=== PATIENT | male | born 1960 | race African-American/Black ===

== ENCOUNTER 2017-03-09 00:34 | Emergency (ER) | payer OTHER ==
[~2017-03-09] VITALS: Ht 180.3 cm; Wt 60.0 kg
[~2017-03-09 00:34] MED LIST: GABA100C4 PO
[2017-03-09 00:37] VITALS: BP 141/77; PULSE 93; RESP 24; TEMP 98.3; O2SAT 100
[2017-03-09] MEDS ORDERED: GABA100C4 PO (00:49)
--- NOTE | 2017-03-09 00:59 | PD ---
HPI . Shortness of breath Chief Complaint: Respiratory Symptoms Time Seen by Provider: 00:47 Travel History International Travel<30 days: No Contact w/Intl Traveler<30days: No Traveled to known affect area: No History of Present Illness HPI This patient presents with chief complaint shortness of breath. Onset was 2 weeks ago. It is getting progressively worse. It is associated with a cough productive of green sputum, subjective fever and nausea. He reports a history of asthma. The patient is also complaining with low back pain. He reports a history of chronic low back pain. He takes gabapentin for it. He states that the pain is so severe that it keeps him up at night. He rates it 10/10. The pain is exacerbated by movement. PFSH Past Medical History Asthma: Yes Depression: Yes Cardiovascular Problems: Yes (THALCEMIA) Diminished Hearing: No Past Surgical History Surgical History: No Previous Surgery Social History Alcohol Use: Yes (COUPLE TIMES A WEEK) Tobacco Use: Yes (1/2 PACK/WEEK) Substance Use: Yes (MARIJUANA AND COCAINE OCC) Allergies-Medications (Allergen,Severity, Reaction): Coded Allergies: No Known Allergies (Verified Adverse Reaction, Unknown, 03/09/17) Reported Meds & Prescriptions Reported Meds & Active Scripts Active Reported Gabapentin 100 Mg Cap 100 Mg PO BID Review of Systems Except as stated in HPI: all other systems reviewed are Neg General / Constitutional: Positive: Fever, Chills Respiratory: Positive: Cough, Shortness of Breath, Wheezing Musculoskeletal: Positive: Pain Physical Exam Narrative GENERAL: Patient ambulates to the room with no significant respiratory distress. SKIN: warm/dry. HEAD: Normocephalic. Atraumatic. EYES: Pupils equal and round. No scleral icterus. No injection or drainage. ENT: No nasal bleeding or discharge. Mucous membranes pink and moist. NECK: Trachea midline. Full range of motion without pain.. CARDIOVASCULAR: Regular rate and rhythm. Heart sounds are normal. RESPIRATORY: No accessory muscle use. Clear to auscultation. Breath sounds equal bilaterally. Deep breathing did cause coughing. The cough is asthmatic sounding. GASTROINTESTINAL: Abdomen soft. Nontender. Bowel sounds present. Nondistended. MUSCULOSKELETAL: No obvious deformities. NEUROLOGICAL: Awake and alert. No obvious cranial nerve deficits. Motor grossly within normal limits. Normal speech. PSYCHIATRIC: Appropriate mood and affect; insight and judgment normal. Data Data Last Documented VS Vital Signs Date Time Temp Pulse Resp B/P (MAP) Pulse Ox O2 Delivery O2 Flow Rate FiO2 03/09/17 01:17 80 24 129/71 (90) 98 Room Air 03/09/17 00:37 98.3 Orders Orders Complete Blood Count With Diff (03/09/17 00:47) Basic Metabolic Panel (Bmp) (03/09/17 00:47) B-Type Natriuretic Peptide (03/09/17 00:47) Magnesium (Mg) (03/09/17 00:47) Troponin I (03/09/17 00:47) Iv Access Insert/Monitor (03/09/17 00:47) Electrocardiogram (03/09/17 00:47) Ecg Monitoring (03/09/17 00:47) Oximetry (03/09/17 00:47) Chest, Single Ap (03/09/17 00:47) Sodium Chloride 0.9% Flush (Ns Flush) (03/09/17 01:00) Methylprednisolone So Succ Inj (Solumedr (03/09/17 01:00) Albuterol-Ipratropium Neb (Duoneb Neb) (03/09/17 01:00) Labs Laboratory Tests Test 03/09/17 01:00 White Blood Count 7.4 TH/MM3 Red Blood Count 5.14 MIL/MM3 Hemoglobin 11.2 GM/DL Hematocrit 34.4 % Mean Corpuscular Volume 66.9 FL Mean Corpuscular Hemoglobin 21.7 PG Mean Corpuscular Hemoglobin Concent 32.4 % Red Cell Distribution Width 15.6 % Platelet Count 364 TH/MM3 Mean Platelet Volume 6.8 FL CBC Comment AUTO DIFF Blood Urea Nitrogen 21 MG/DL Creatinine 1.50 MG/DL Random Glucose 111 MG/DL Calcium Level 8.9 MG/DL Magnesium Level 2.4 MG/DL Sodium Level 137 MEQ/L Potassium Level 4.3 MEQ/L Chloride Level 102 MEQ/L Carbon Dioxide Level 25.4 MEQ/L Anion Gap 10 MEQ/L Estimat Glomerular Filtration Rate 59 ML/MIN Troponin I LESS THAN 0.02 NG/ML B-Type Natriuretic Peptide 9 PG/ML MDM Medical Decision Making Medical Screen Exam Complete: Yes Emergency Medical Condition: Yes Interpretation(s) EKG shows a normal sinus rhythm. No acute ischemic changes noted. Differential Diagnosis Differential diagnosis of dyspnea includes but is not limited to congestive heart failure, pneumonia, wheezing, pneumothorax, pulmonary embolism Narrative Course This patient presents with a two-week history of dyspnea. He reports a history of asthma. He does report a productive cough. I will treat him with albuterol nebs and Solu-Medrol. Chest x-ray is pending to rule out pneumonia or pulmonary edema. Basic labs are also pending. Last Impressions Chest X-Ray 03/09/17 0047 Signed Impressions: Service Date/Time: Thursday, March 09, 2017 01:06 - CONCLUSION: No evidence of acute cardiopulmonary disease. Jm Blanca MD The chest x-ray was independently viewed by me CBC & BMP Diagram 03/09/17 01:00 Calcium Level 8.9, Magnesium Level 2.4 trop < 0.02 BNP 9 Vital Signs Date Time Temp Pulse Resp B/P (MAP) Pulse Ox O2 Delivery O2 Flow Rate FiO2 03/09/17 01:17 80 24 129/71 (90) 98 Room Air 03/09/17 01:15 98 Room Air 03/09/17 01:15 98 Room Air 03/09/17 00:37 98.3 93 24 141/77 (98) 100 Room Air The patient reports that he is feeling better. This is an asthmatic patient who has had a productive cough. Therefore, he will be treated with antibiotics. I will also place him on a steroid taper. Diagnosis Primary Impression: Shortness of breath Additional Impression: Bronchitis Patient Instructions: Acute Bronchitis (DC), General Instructions Med/Other Pt SpecificInfo: Prescription(s) given Scripts Prednisone (48) 10 mg tab Dose Pack (Prednisone (48) 10 mg tab Dose Pack) 10 Mg Dspk 10 MG PO DIRECTED for Inflammation, #1 DSPK 0 Refills Prov: Rachel Emmanuel MD 03/09/17 Azithromycin (Zithromax) 250 Mg Tab 250 MG PO DIRECTED for Infection, #6 TAB 0 Refills Take 2 tabs (500 mg) on day 1 then 1 tab daily x 4 days. Prov: Rachel Emmanuel MD 03/09/17 Disposition: 01 DISCHARGE HOME Condition: Stable Rachel Emmanuel MD Mar 09, 2017 00:59
[2017-03-09] MEDS ORDERED: methylPREDNISolone SOD SUCC 125 MG/2 ML VIAL IV PUSH ONE (01:00)
[2017-03-09] MEDS ORDERED: SODIUM CHLORIDE 0.9% FLUSH 10 ML FLUSH IVF PRN (01:00)
[2017-03-09] MEDS: RESP: ALBUTEROL 2.5 MG/IPRATROPIUM 0.5 MG NEB (SCH) INH (01:02)
--- NOTE | 2017-03-09 01:11 | RADRPT ---
EXAM DATE/TIME: 03/09/2017 01:06 [facility] COMPARISON: No previous studies available for comparison. INDICATIONS : Shortness of breath and chest pain. MEDICAL HISTORY : None. SURGICAL HISTORY : None. ENCOUNTER: Initial ACUITY: 2 weeks PAIN SCORE: 4/10 LOCATION: chest FINDINGS: A single view of the chest demonstrates the lungs to be symmetrically aerated without evidence of mas s, infiltrate or effusion. The cardiomediastinal contours are unremarkable. Osseous structures are intact. CONCLUSION: No evidence of acute cardiopulmonary disease. Jm Blanca MD on March 09, 2017 at 1:09 Board Certified Radiologist. This report was verified electronically.
[2017-03-09 01:15] VITALS: O2SAT 98
[2017-03-09 01:17] VITALS: BP 129/71; PULSE 80; RESP 24; O2SAT 98
[2017-03-09 01:22] LABS: HEMATOCRIT 34.4 % (39.0-51.0); HEMOGLOBIN 11.2 GM/DL (13.0-17.0); MEAN CELL VOLUME 66.9 FL (80.0-100.0); MEAN CORPUSCULAR HEMOGLOBIN 21.7 PG (27.0-34.0); MEAN CORPUSCULAR HGB CONC 32.4 % (32.0-36.0); MEAN PLATELET VOLUME 6.8 FL (7.0-11.0); PLATELET COUNT 364 TH/MM3 (150-450); RED BLOOD COUNT 5.14 MIL/MM3 (4.50-5.90); RED CELL DISTRIBUTION WIDTH 15.6 % (11.6-17.2); WHITE BLOOD COUNT 7.4 TH/MM3 (4.0-11.0)
[2017-03-09 01:39] LABS: BICARBONATE 25.4 MEQ/L (21.0-32.0); BLOOD UREA NITROGEN 21 MG/DL (7-18); CALCIUM 8.9 MG/DL (8.5-10.1); CHLORIDE 102 MEQ/L (98-107); GLOMERULAR FILTRATION RATE 59 ML/MIN (>89); GLUCOSE,RANDOM 111 MG/DL (74-106); MAGNESIUM 2.4 MG/DL (1.5-2.5); SODIUM (NA) 137 MEQ/L (136-145); TROPONIN I LESS THAN 0.02 NG/ML (0.02-0.05)
[2017-03-09] MEDS ORDERED: PRED10PA2 PO (01:57)
[2017-03-09] MEDS ORDERED: ZITH250T PO (01:57)
[2017-03-09 02:13] LABS: BANDS 1 % (0-6); LYMPHOCYTES 25 % (9-44); MONOCYTES 6 % (0-8); NEUTROPHIL # MANUAL DIFF 4.6 TH/MM3 (1.8-7.7); POLYS (SEG NEUTROPHILS) 61 % (16-70)
[2017-03-09 02:14] LABS: ACANTHOCYTES OCC (NORMAL)
[2017-03-09 02:15] LABS: TARGET CELLS 2+ (NORMAL)
--- NOTE | 2017-03-09 09:22 | EKG ---
Date Performed: 03/09/2017 Time Performed: 01:58:22 PTAGE: 57 years EKG: Sinus rhythm POSSIBLE RIGHT ATRIAL ENLARGEMENT POSSIBLE LEFT ATRIAL ENLARGEMENT POSSIBLE RIGHT VENTRICULAR CONDUC TION DELAY BORDERLINE ECG Compared to prior tracing no significant change PREVIOUS TRACING 07/04/2013 [id number] DOCTOR: Marcel Cordero Interpretating Date/Time 03/09/2017 09:20:06
== END 2017-03-09 02:24 | disposition home or self-care (01) ==
LOC: NEPC 00:34
DX: R06.02 Shortness of breath (principal); J40 Bronchitis, not specified as acute or chronic; J45.909 Unspecified asthma, uncomplicated; M54.5 Low back pain; G89.29 Other chronic pain; R94.31 Abnormal electrocardiogram [ECG] [EKG]; Z72.0 Tobacco use
CPT/HCPCS: 71010; 80048; 83735; 83880; 84484; 85007; 85027; 93005; 94640; 94664; 96374; 99284; J2930

== ENCOUNTER 2017-10-05 16:39 | Emergency (ER) | payer OTHER ==
[~2017-10-05] VITALS: Ht 180.3 cm; Wt 62.0 kg
[~2017-10-05 16:39] MED LIST changes: +PRED10PA2 PO; +ZITH250T PO
[2017-10-05 16:42] VITALS: BP 149/68; PULSE 88; RESP 20; TEMP 97.9; O2SAT 100
== END 2017-10-05 19:43 | disposition left against medical advice (07) ==
LOC: NETRI 16:39
DX: Z53.21 Procedure and treatment not carried out due to patient leaving prior to being seen by health care provider (principal)
CPT/HCPCS: 99281